=== PATIENT | female | born 2000 | race Caucasian/White ===

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

== ENCOUNTER → 2019-03-22 22:18 | Outpatient (CLI) | payer MEDICAID ==
[2018-11-14 13:55] VITALS: BMI 33.7
[~2019-03-22 22:18] MED LIST: PRENAVITE1 TAB PO
== END | disposition home or self-care (01) ==
LOC: D.LDO 22:18
PROVIDERS: ATTEND Obstetrics & Gynecology
DX: O26.899 Other specified pregnancy related conditions, unspecified trimester (principal); Z3A.00 Weeks of gestation of pregnancy not specified

== ENCOUNTER → 2019-04-17 15:39 | Outpatient (CLI) | payer MEDICAID ==
[2018-11-14 13:55] VITALS: BMI 33.7
[~2019-04-17 15:39] MED LIST changes: +FUROSEMIDE20 MG PO
[2019-04-17 16:19] LABS: APPEARANCE CLEAR (CLEAR); BILIRUBIN NEGATIVE (NEGATIVE); COLOR YELLOW (YELLOW); GLUCOSE NEGATIVE (NEGATIVE); KETONE NEGATIVE (NEGATIVE); NITRITE NEGATIVE (NEGATIVE); PROTEIN TRACE mg/dL (NEGATIVE); SPECIFIC GRAVITY 1.025 (1.005-1.020); UROBILINOGEN NORMAL (NORMAL)
[2019-04-17 16:21] LABS: BACTERIA MODERATE /hpf (NONE SEEN); CALCIUM OXALATE CRYSTALS 0-5 /hpf (NONE SEEN); EPITHELIAL CELLS 0-5 /hpf (0-5); RED CELLS - URINE 0-5 /hpf (0-5); WHITE CELLS - URINE 0-5 /hpf (0-5)
[2019-06-23 22:40] VITALS: BMI 39.1
== END | disposition home or self-care (01) ==
LOC: D.LDO 15:39
PROVIDERS: ATTEND Obstetrics & Gynecology
DX: O16.2 Unspecified maternal hypertension, second trimester (principal); Z3A.27 27 weeks gestation of pregnancy

== ENCOUNTER → 2019-06-04 18:01 | Outpatient (CLI) | payer MEDICAID ==
[2018-11-14 13:55] VITALS: BMI 33.7
[2019-06-04 18:38] LABS: APPEARANCE HAZY (CLEAR); BILIRUBIN NEGATIVE (NEGATIVE); COLOR YELLOW (YELLOW); GLUCOSE NEGATIVE (NEGATIVE); KETONE NEGATIVE (NEGATIVE); NITRITE NEGATIVE (NEGATIVE); PROTEIN NEGATIVE (NEGATIVE); SPECIFIC GRAVITY 1.015 (1.005-1.020); UROBILINOGEN NORMAL (NORMAL)
[2019-06-23 22:40] VITALS: BMI 39.1
== END | disposition home or self-care (01) ==
LOC: D.LDO 18:01
PROVIDERS: ATTEND Student in an Organized Health Care Education/Training Program
DX: O26.899 Other specified pregnancy related conditions, unspecified trimester (principal); Z3A.00 Weeks of gestation of pregnancy not specified

== ENCOUNTER 2019-06-22 11:50 | Inpatient (IN) | payer MEDICAID ==
[~2019-06-22] VITALS: Ht 170.2 cm; Wt 112.9 kg
[~2019-06-22 11:50] MED LIST changes: -FUROSEMIDE20 MG PO
[2019-06-22 13:08] LABS: ALBUMIN 1.8 g/dL (3.4-5.0); ALKALINE PHOSPHATASE 140 U/L (46-116); ALT (SGPT) 15 U/L (10-68); BILIRUBIN - INDIRECT 0.29 mg/dL (0.00-1.00); BILIRUBIN - TOTAL 0.34 mg/dL (0.2-1.3); CALC OSMOLALITY 269 mosm/kg (275-300); CHLORIDE - SERUM 105 mmol/L (98-107); CREATININE - SERUM 0.7 mg/dL (0.6-1.3); GLUCOSE 76 mg/dL (74-106); POTASSIUM - SERUM 4.2 mmol/L (3.5-5.1); PROTEIN - SERUM 6.3 g/dL (6.4-8.2); SODIUM 136 mmol/L (136-145); UREA NITROGEN 11 mg/dL (7-18); URIC ACID 7.8 mg/dL (2.6-7.2); eGFR NON AFRICAN AMERICAN > 90 mL/min (90-120)
[2019-06-22 13:12] LABS: BILIRUBIN - DIRECT 0.05 mg/dL (0.00-0.30)
[2019-06-22 13:16] LABS: BASOPHILS 0.1 % (0-2); EOSINOPHILS 0.8 % (0-7); HEMATOCRIT 36.3 % (36.0-48.0); HEMOGLOBIN 12.5 g/dL (12-16); IMMATURE GRANULOCYTES 0.3 % (0-5); LYMPHOCYTES 16.6 % (15-50); MCH 30.4 pg (26.0-34.0); MCHC 34.4 g/dL (31.0-37.0); MCV 88.3 fL (80.0-100.0); NEUTROPHILS 77.2 % (40-80); PLATELET COUNT 313 10x3/uL (130-400); RBC 4.11 10x6/uL (4.00-5.40); RDW 14.3 % (11.5-14.5); WBC 15.5 10x3/uL (4.8-10.8)
[2019-06-22 23:20] LABS: HEMATOCRIT 35.4 % (36.0-48.0); HEMOGLOBIN 12.3 g/dL (12-16); MCH 30.6 pg (26.0-34.0); MCHC 34.7 g/dL (31.0-37.0); MCV 88.1 fL (80.0-100.0); MEAN PLATELET VOLUME 12.5 fL (7.4-10.4); RBC 4.02 10x6/uL (4.00-5.40); RDW 14.4 % (11.5-14.5)
[2019-06-23 16:25] LABS: HEMOGLOBIN 13.1 g/dL (12-16); MCH 30.5 pg (26.0-34.0); MCHC 34.5 g/dL (31.0-37.0); MCV 88.4 fL (80.0-100.0); MEAN PLATELET VOLUME 11.6 fL (7.4-10.4); RBC 4.3 10x6/uL (4.00-5.40); RDW 14.4 % (11.5-14.5)
[2019-06-23 16:42] LABS: LYMPHOCYTES 10 % (15-50); MONOCYTES 2 % (2-11); NEUTROPHILS 88 % (40-80); PLATELET ESTIMATE NORMAL
--- NOTE | 2019-06-23 17:30 | NUR ---
dr. toure notified of magnesium level of 5.8. no new orders received at this time.
--- NOTE | 2019-06-23 20:00 | NUR ---
REC'D PT AA&O X 4 LYING TO LEFT TILT FOR COMFORT. PT W/C/O DISCOMFORT FROM KRAUS CATH. TEACHING PROVIDED. PT VERBALZIES UNDERSTANDING IT MAY NOT COME OUT. SHIFT ASSESSMENT COMPLETED. SEE FLOWSHEET. FUNDUS FIRM,U/1, SMALL LOCHIA NOTED. NO CLOTS EXPRESSED W/MASSAGE. TOWELS AND CHUX CHANGED. 2ND SALINE LOCK REMOVED PER PT REQUEST BECAUSE IT WAS CAUSING HER PAIN. CONTINUE POC DISCUSSED W/PT INREFERENCE TO MOVING HER TO A REGULAR BED AND A CLEAN ROOM. PT VERBALIZES UNDERSTANDING AND AGREEABLE. PT HAS FRESH ICE WATER AT BEDSIDE. FAMILY AT BEDSIDE. NO FURTHER NEEDS VOICED AT THIS TIME.
--- NOTE | 2019-06-23 21:00 | NUR ---
THIS RN AND Saurabh SANTANA RN TO BEDSIDE TO TRANSFER PT TO ROOM 1274. PT CURRENTLY C/O PERINEAL PAIN. PAIN INTERVENTION TEACHING PROVIDED W/FOLLOW THROUGH AFTER TRANSFER. FUNDUS FIRM,U/1,SMALL RUBRA LOCHIA NOTED.PT TRANSFERD AMBULATORY TO ROOM 1274. PT TO BED W/OUT ASSIST. SCD WRAPS PLACED BILATERALLY. CONNECTED TO PUMP IS ON AND FUNCTIONING. BP OBOTAINED. SEE FLOWSHEET/PAPER FLOWSHEET. APPROX 800ML URINE DUMPED FROM KRAUS AT THIS TIME. CLEAN GOWN AND PERIPADS PLACED. DERMAPLAST PROVIDED AND APPLIED. MOTRIN 600MG PO GIVEN. PT HAS ICE WATER AT BEDSIDE. BED LOW, SIDE RAILS UP X 2. CALL LIGHT AND PHONE AT PT'S SIDE. APPROX 100ML REMAIN IN .45% NS AND MAG BAGS. PT DENIES FURTHER NEEDS AT THIS TIME.
[2019-06-23 22:00] VITALS: BP 129/62
--- NOTE | 2019-06-23 22:00 | NUR ---
PT AT THIS TIME, VS AND I&O'S COLLECTED, PT DENIES NEEDS OR PAIN AT THIS TIME, FOB AT BEDSIDE
[2019-06-23 22:40] VITALS: BP 121/68; Ht 170.2 cm; Wt 112.9 kg
[2019-06-23 23:00] VITALS: BP 138/85
--- NOTE | 2019-06-23 23:00 | NUR ---
INFANT TO FOB'S ARMS, VS CONTINUE, I&O'S COLLECTED, FF, ML, U/U, LITE BLEEDING NOTED WITH NO CLOTS, PT CLEANED UP WITH WET WARM WASH CLOTHS, DERMPLAST APPLIED, YAMILET PAD PLACED, PT REQUESTED CUP TO BE FILLED UP WITH ICE, SCD'S CONTINUE ON AND WORKING PROPERLY, PT DENIES FURTHER NEEDS
[2019-06-24] VITALS (12 sets, daily range): BP systolic 116–156; BP diastolic 66–85
--- NOTE | 2019-06-24 | NUR ---
PT HOLDING INFANT, VS OBTAINED, I&O'S COLLECTED, PT DENIES NEEDS OR PAIN, FOB AT BEDSIDE
--- NOTE | 2019-06-24 01:00 | NUR ---
PT AWAKE, PT WANTING TO REST FOR A LITTLE WHILE, BACK TO NSY VIA OPEN CRIB CART PER CELY MONTOYA RN, VS OBTAINED, I&O'S COLLECTED, PT DENIES NEEDS OR PAIN AT THIS TIME, FOB AT BEDSIDE
--- NOTE | 2019-06-24 02:00 | NUR ---
PT RESTING WITH EYES CLOSED, AROUSES TO SOFT VERBAL STIMULATION, VS OBTAINED, I&O'S COLLECTED, WILL ADM LABETOLOL, SCD'S CONTINUE ON AND WORKING PROPERLY, FOB ASLEEP ON COUCH
--- NOTE | 2019-06-24 02:10 | NUR ---
SONG MELVIN RN SPOKE TO KELLY DIXON, SAUSAGE TIER REGARDING LABETOLOL AND PT'S BP OF 124/72, REPORTS THAT IT IS OK TO ADM THE LABETOLOL
--- NOTE | 2019-06-24 02:12 | NUR ---
ADM LABETOLOL PER MD ORDERS, SEE EMAR
--- NOTE | 2019-06-24 03:00 | NUR ---
PT RESTING WITH EYES CLOSED, AROUSES TO SOFT VERBAL STIMULATION, VS OBTAINED, I&O'S COLLECTED, PT DENIES NEEDS OR PAIN AT THIS TIME, FOB ASLEEP ON COUCH
--- NOTE | 2019-06-24 04:00 | NUR ---
PT AROUSES TO ME IN ROOM, VS OBTAINED, KRAUS CATH EMPTIED, LITE BLEEDING NOTED WITH NO CLOTS, YAMILET PAD CHANGED, SCD'S CONTINUE ON AND WORKING PROPERLY, PT DENIES NEEDS OR PAIN AT THIS TIME, FOB ASLEEP ON COUCH
[2019-06-24 04:30] LABS: BASOPHILS 0.1 % (0-2); EOSINOPHILS 0.5 % (0-7); HEMOGLOBIN 10.1 g/dL (12-16); IMMATURE GRANULOCYTES 0.2 % (0-5); LYMPHOCYTES 18.7 % (15-50); MCH 29.9 pg (26.0-34.0); MCHC 33.7 g/dL (31.0-37.0); MCV 88.8 fL (80.0-100.0); MEAN PLATELET VOLUME 11.4 fL (7.4-10.4); MONOCYTES 6.5 % (2-11); PLATELET COUNT 283 10x3/uL (130-400); RBC 3.38 10x6/uL (4.00-5.40); RDW 14.6 % (11.5-14.5); WBC 15.5 10x3/uL (4.8-10.8)
--- NOTE | 2019-06-24 05:19 | NUR ---
SONG MELVIN, RN, CHARGE NURSE NOTIFIED DR ESPARZA REGARDING MAG LEVEL OF 7.1, ORDERS TO STOP MAG AT THIS TIME, THIS RN TO ROOM TO STOP MAG PER MD ORDERS, PT INFORMED, PT STATES "OH GOOD", PT DENIES NEEDS OR PAIN AT THIS TIME, FOB ASLEEP ON COUCH
--- NOTE | 2019-06-24 06:00 | NUR ---
PT RESTING WITH EYES CLOSED, AROUSES TO SOFT VERBAL STIMULATION, VS OBTAINED, I&O'S COLLECTED, SCD'S CONTINUE ON AND WORKING PROPERLY, PT DENIES NEEDS OR PAIN, FOB ASLEEP ON COUCH
--- NOTE | 2019-06-24 07:15 | NUR ---
dr. toure rounds on pt this am. verbal order received to will carmona cath, sl lock iv, advance to regular diet, brp's.
--- NOTE | 2019-06-24 07:20 | NUR ---
to room. am assessment completed. pt denies needs at this time. carmona cath dc'd with 700 ml's dark yellow urine emptied. pericare done with warm wet washcloths. peripads changed. fundus firm, u/2, small rubra lochia, no clots expelled. pt denies headache, visual disturbances, or epigastric pain. negative clonus. sig other at bedside. srup x 2, call light and phone within reach.
--- NOTE | 2019-06-24 08:00 | NUR ---
pt calls out personal companion light and wants to get up to the bathroom. scd's removed. pt assisted up to br, gait slow and steady. pt voids 300 ml's into [place] hat. pericare done per self with peribottle and betadine with teaching. warm wet washcloths provided for pericare. pt assisted with peripanties and pads. pt wishes to take a shower later. dietary has served regular breakfast tray. pt denies all other needs at this time. srup x2, call light and phone within reach.
[2019-06-24 08:11] LABS: RAPID PLASMA REAGIN Non Reactive (Non Reactive)
--- NOTE | 2019-06-24 10:30 | NUR ---
pt assisted up to shower, gait steady. pt's mother and sig other remains in room with pt. clean linens/gown/peripads/panties/baby soap, toothbrush/paste and deoderant provided. pt voids into [place] hat prior to getting into shower, 400 ml's emptied out of [place] hat. call light within reach.
--- NOTE | 2019-06-24 13:45 | NUR ---
pt up to br, voids 400 ml's into [place] hat. pericare done per self, without difficulty. pt back to bed. nsy to room with infant. pt denies all other needs at this time. srup x2, call light and phone within reach.
[2019-06-24 13:50] LABS: HEMATOCRIT 29.2 % (36.0-48.0); MCH 30.7 pg (26.0-34.0); MCHC 34.2 g/dL (31.0-37.0); MCV 89.6 fL (80.0-100.0); MEAN PLATELET VOLUME 11.6 fL (7.4-10.4); PLATELET COUNT 295 10x3/uL (130-400); RBC 3.26 10x6/uL (4.00-5.40); RDW 14.8 % (11.5-14.5); WBC 15.5 10x3/uL (4.8-10.8)
--- NOTE | 2019-06-24 15:50 | NUR ---
pt ambulatory in room. infant in room in crib, no distress noted. srup x2, call light and phone within reach. see emar for all meds adm by this rn. pt denies all other needs at this time.
[2019-06-24 16:04] LABS: EOSINOPHILS 1 % (0-7); LYMPHOCYTES 13 % (15-50); MONOCYTES 2 % (2-11); NEUTROPHILS 84 % (40-80); PLATELET ESTIMATE NORMAL
--- NOTE | 2019-06-24 18:00 | NUR ---
pt resting comfortably in the bed. denies all needs at this time. srup x 2, call light and phone within reach. visitors at bedside.
--- NOTE | 2019-06-24 18:58 | NUR ---
report given to 7 p shift.
--- NOTE | 2019-06-24 19:41 | NUR ---
PT REC'D IN BED AT THIS TIME HOLDING . NO DISTRESS NOTED. DENIES PAIN AT THIS TIME. SALINE LOCK TO THE LFT WRIST. LUNGS CLEAR. BS+FUNDUS FIRM AND MIDLINE AND U/2 SCANT LOCHIA NOTED. 2+ PITTING EDEMA NOTED AT THIS TIME. DTRS +2. SIDERAILS UP FOR SAFETY. CALL LIGHT IN PT REACH. L EMIL RN
--- NOTE | 2019-06-24 20:39 | NUR ---
ME GIVEN SCHEDULED DOSE OF LABETOLOL. SALINE LOCK FLUSHED. SITE PATENT. NO NEEDS NOTED AT THIS TIME. Saurabh STEIN RN
--- NOTE | 2019-06-24 21:30 | NUR ---
PT IN BED WITH . GIVEN BLANKTES AT THIS TIME. NO OTHER NEEDS VOICED. Saurabh STEIN RN
--- NOTE | 2019-06-24 22:41 | NUR ---
PT REC'D IN BED AT THIS TIME. NO NEEDS VOICED. Saurabh ACOSTA RN
--- NOTE | 2019-06-24 23:38 | NUR ---
PT MEDICATED WITH MOTRIN FOR PAIN LEVEL OF 6 AT THIS TIME. PT STATES THAT SHE IS CRAMPING AT THIS TIME. Saurabh STEIN RN
[2019-06-25 04:44] VITALS: BP 140/84
--- NOTE | 2019-06-25 04:47 | NUR ---
PT MEDICATED WITH SCHEDULED LABETOLOL. STATES PAIN IS A 4-5 AT THIS TIME. Saurabh STEIN RN
[2019-06-25 07:05] VITALS: BP 151/77
--- NOTE | 2019-06-25 07:05 | NUR ---
BEDSIDE REPORT RECEIVED, PT RELAYS PAIN A 3 OR 4 ON NUMERIC PAIN SCALE BUT DENIES NEED FOR MEDICATION AT THIS TIME, AAOX4, CONVERSANT, IN ARMS +BONDING, RESP EVEN AND UNLABORED, HEART RRR, LUNGS CTAB, DENIES PRAJAPATI, BLURRY VISION, OR EPIGASTRIC PAIN, DTRS 2+ B LE, EDEMA 1+ B LE, PEDAL PULSES STRONG AND EQUAL AT 2+ B. NEGATIVE BETSY'S SIGN B. VOIDING WELL, FUNDUS FIRM AT U/2 AND MIDLINE, PASSING FLATUS, NAD NOTED AT THIS TIME, WILL CONTINUE TO MONITOR, SIDE RAILS UP X2, BED IN LOW POSITION, BED BRAKES LOCKED. SIGNIFICANT OTHER PRESENT IN ROOM.
--- NOTE | 2019-06-25 08:10 | NUR ---
ROUNDS COMPLETED, PT SITTING IN BED NAD NOTED, RESP EVEN AND UNLABORED, DENIES NEEDS OR CONCERNS. WILL MONITOR.
--- NOTE | 2019-06-25 09:10 | NUR ---
ROUNDS COMPLETED, TOLERATING PO INTAKE, NO CONCERNS OR C/O AT THIS TIME, NAD, CONTINUE TO MONITOR.
[2019-06-25] MEDS ORDERED: FUROSEMIDE20 MG PO (09:27)
--- NOTE | 2019-06-25 10:15 | NUR ---
ROUNDS COMPLETED, SALINE LOCK DISCONTINUED, CATHETER TIP INTACT, BANDAID APPLIED TO SITE, TOLERATES PROCEDURE WELL. WILL MONITOR.
--- NOTE | 2019-06-25 11:55 | NUR ---
DISCHARGE INSTRUCTIONS REVIEWED WITH PT, PT FAMILY, AND SPOUSE. QUESTIONS ANSWERED, HANDOUTS PROVIDED, AND ENCOURAGED TO NOTIFY MD OF ANY HEADACHE, BLURRY VISION. PT STATES UNDERSTANDING OF ALL INFORMATION PROVIDED. NAD NOTED, DENIES NEEDS OR CONCERNS AT THIS TIME. CONTINUE TO MONITOR.
--- NOTE | 2019-06-25 12:20 | NUR ---
PATIENT DISCHARGED TO HOME WITH VIA WHEELCHAIR TO PRIVATE AUT[employer], PT SMILES, NAD NOTED.
== END 2019-06-25 12:20 | disposition home or self-care (01) | DRG 807 ==
LOC: D.LDO 11:50 → D.LD 15:49 → D.LDO 22:21 → D.LD 22:21
PROVIDERS: Obstetrics & Gynecology; Student in an Organized Health Care Education/Training Program; ADMIT Obstetrics & Gynecology; ATTEND Obstetrics & Gynecology
PROC: 10E0XZZ Delivery of Products of Conception, External Approach (ICD-10-PCS; principal; 2019-06-23)
PROC: 3E033VJ Introduction of Other Hormone into Peripheral Vein, Percutaneous Approach (ICD-10-PCS; 2019-06-23)
PROC: 0HQ9XZZ Repair Perineum Skin, External Approach (ICD-10-PCS; 2019-06-23)
DX: O14.14 Severe pre-eclampsia complicating childbirth (principal); Z37.0 Single live birth; Z3A.36 36 weeks gestation of pregnancy; O99.214 Obesity complicating childbirth; E66.01 Morbid (severe) obesity due to excess calories; O99.344 Other mental disorders complicating childbirth; O69.81X0 Labor and delivery complicated by cord around neck, without compression, not applicable or unspecified; O70.0 First degree perineal laceration during delivery

== ENCOUNTER 2020-04-03 18:05 | Emergency (ER) | payer MEDICAID ==
[~2020-04-03] VITALS: Ht 170.2 cm; Wt 104.5 kg
[~2020-04-03 18:05] MED LIST changes: +FUROSEMIDE20 MG PO
[2020-04-03 18:22] VITALS: Ht 170.2 cm; Wt 104.5 kg
[2020-04-03 19:06] LABS: BASOPHILS 0.1 % (0-2); EOSINOPHILS 0.9 % (0-7); HEMATOCRIT 42.9 % (36.0-48.0); HEMOGLOBIN 14.2 g/dL (12-16); IMMATURE GRANULOCYTES 0.3 % (0-5); LYMPHOCYTES 24.3 % (15-50); MCH 29.8 pg (26.0-34.0); MCHC 33.1 g/dL (31.0-37.0); MCV 90.1 fL (80.0-100.0); MONOCYTES 5.5 % (2-11); NEUTROPHILS 68.9 % (40-80); RBC 4.76 10x6/uL (4.00-5.40); RDW 13.4 % (11.5-14.5); WBC 14.1 10x3/uL (4.8-10.8)
[2020-04-03 19:10] LABS: APTT 32.3 SECONDS (22.8-39.4); INR 1.03 (0.85-1.17); PROTIME 13.4 SECONDS (11.6-15.0)
[2020-04-03 19:12] LABS: CALC OSMOLALITY 271 mosm/kg (275-300); CALCIUM 9.3 mg/dL (8.5-10.1); CARBON DIOXIDE 26.4 mmol/L (21.0-32.0); CHLORIDE - SERUM 101 mmol/L (98-107); GLUCOSE 97 mg/dL (74-106); POTASSIUM - SERUM 3.4 mmol/L (3.5-5.1); SODIUM 136 mmol/L (136-145); UREA NITROGEN 13 mg/dL (7-18); eGFR NON AFRICAN AMERICAN 75 mL/min (90-120)
[2020-04-03 19:17] LABS: PLATELET COUNT 362 10x3/uL (130-400)
[2020-04-03 19:27] LABS: ALBUMIN 3.9 g/dL (3.4-5.0); ALKALINE PHOSPHATASE 62 U/L (30-120); ALT (SGPT) 34 U/L (10-68); BILIRUBIN - TOTAL 0.57 mg/dL (0.2-1.3); CKMB 0.4 U/L (0.0-3.6); CREATINE KINASE 82 UL (21-215); MAGNESIUM - SERUM 1.9 mg/dL (1.8-2.4); PROTEIN - SERUM 8.2 g/dL (6.4-8.2)
[2020-04-03 19:30] LABS: TROPONIN-I < 0.017 ng/mL (0.000-0.060)
[2020-04-03 20:34] VITALS: BP 109/76
== END 2020-04-03 20:35 | disposition home or self-care (01) ==
LOC: D.ER 18:05
PROVIDERS: Family Medicine
DX: R07.89 Other chest pain (principal); M79.645 Pain in left finger(s); M79.644 Pain in right finger(s)